=== PATIENT | male | born 1975 | race Caucasian/White ===

== ENCOUNTER 2022-05-29 08:23 | Day surgery (SDC) | payer BC ==
[~2022-05-29] VITALS: Ht 177.8 cm; Wt 74.4 kg
[~2022-05-29 08:23] MED LIST: PRILOSEC 20MG20 MG PO; [UNRECOGNIZED DRUG - OTHER]
[2022-05-29] MEDS ORDERED: LIPITOR20 MG PO (08:53)
[2022-05-29] MEDS ORDERED: DEXILANT60 MG PO (08:54)
[2022-05-29 09:05] VITALS: BP 128/94; PULSE 62; TEMP 97.1
[2022-05-29 10:20] VITALS: BP 109/74; PULSE 64; TEMP 97.6
[2022-05-29 10:35] VITALS: BP 111/71; PULSE 60
[2022-05-29 10:50] VITALS: BP 123/80; PULSE 56
--- NOTE | 2022-05-29 10:55 | NUR ---
1020 RETURNS TO ROOM 4. AMBULATES FROM CART TO RECLINER WITH STAND BY ASSIST. SEATED WITH LEGS ELEVATED. MONITORS ON, VITAL SIGNS OBTAINED . DENIES NAUSEA OR ABD PAIN. SEATED IN ROOM. 1023 DR. MEYER HERE TO VISIT WITH PATIENT AND . 1025 TOLERATES PO JUICE AND MUFFIN WITHOUT NAUSEA. 1044 DISCHARGE INSTRUCTIONS REVIEWED WITH PATIENT AND VERBALIZING UNDERSTANDING. COPY PROVIDED IN DISCHARGE FOLDER. 1055 DRESSES SELF. 1058 DISCHARGED PER WHEELCHAIR TO VEHICLE BEING DRIVEN BY
== END 2022-05-29 10:58 | disposition home or self-care (01) ==
LOC: SDCO 08:23
DX: Z12.11 Encounter for screening for malignant neoplasm of colon (principal); D12.4 Benign neoplasm of descending colon; K57.30 Diverticulosis of large intestine without perforation or abscess without bleeding
CPT/HCPCS: J2704; J7120